=== PATIENT | female | born 1980 | race Caucasian/White ===

== ENCOUNTER 2017-07-05 02:42 | Emergency (ER) | payer SELFPAY ==
[~2017-07-05] VITALS: Ht 157.5 cm; Wt 63.5 kg
[2017-07-05 02:42] VITALS: BP_SYST 146
[2017-07-05] MEDS ORDERED: NS 500 ML IV ONE (03:00)
[2017-07-05] MEDS ORDERED: DIPH-TET-PERTUS Vaccine 0.5 ML VIAL (ADACEL) I.M. ONE (03:00)
[2017-07-05] MEDS ORDERED: AMPICILLIN SODIUM/SULBACTAM NA 1.5 GM in NS 50 ML IV ONE (03:00)
[2017-07-05] MEDS ORDERED: AMPICILLIN SODIUM/SULBACTAM NA 1.5 GM VIAL ONE (03:04)
[2017-07-05 03:56] VITALS: BP_SYST 137
== END 2017-07-05 03:56 | disposition home or self-care (01) ==
LOC: SED 02:42
DX: L03.114 Cellulitis of left upper limb (principal); M06.9 Rheumatoid arthritis, unspecified; F17.200 Nicotine dependence, unspecified, uncomplicated; F15.10 Other stimulant abuse, uncomplicated; F12.10 Cannabis abuse, uncomplicated
CPT/HCPCS: 90471; 90715; 96365; 99284; J0295; J7040

== ENCOUNTER 2018-01-25 22:41 | Emergency (ER) | payer SELFPAY ==
[~2018-01-25] VITALS: Ht 154.9 cm; Wt 56.7 kg
[2018-01-25 22:50] VITALS: BP_SYST 138
[2018-01-25] MEDS ORDERED: CAT.1 PO (23:08)
[2018-01-25] MEDS ORDERED: ALPR1TAB2 PO (23:09)
[2018-01-25] MEDS ORDERED: HYDR-2489 PO (23:10)
[2018-01-25] MEDS ORDERED: SOM350 PO (23:10)
[2018-01-26 00:14] VITALS: BP_SYST 133
== END 2018-01-26 00:14 | disposition home or self-care (01) ==
LOC: SED 22:41
DX: S16.1XXA Strain of muscle, fascia and tendon at neck level, initial encounter (principal); R03.0 Elevated blood-pressure reading, without diagnosis of hypertension; Z79.899 Other long term (current) drug therapy; V43.62XA Car passenger injured in collision with other type car in traffic accident, initial encounter; Y93.89 Activity, other specified; Y92.410 Unspecified street and highway as the place of occurrence of the external cause; Y99.8 Other external cause status
CPT/HCPCS: 72040-TC; 72072-TC; 81025; 99284

== ENCOUNTER → 2023-06-21 10:27 | Emergency (ER) | payer MEDICAID ==
[~2023-06-21] VITALS: Ht 157.5 cm; Wt 70.3 kg
[2023-06-21 10:27] VITALS: BP_SYST 120; PULSE 99; RESP 18; TEMP 97.8; O2SAT 100
[~2023-06-21 10:27] MED LIST: ALPR1TAB2 PO; CAT.1 PO; HYDR-4274 PO; PNV1TABL75 PO; SOM350 PO
[2023-06-21 11:04] LABS: BILIRUBIN,URINE NEGATIVE (NEGATIVE); CLARITY/URINE CLEAR (CLEAR); COLOR,URINE YELLOW (YELLOW); GLUCOSE,URINE NEGATIVE (NEGATIVE); KETONES,URINE TRACE (NEGATIVE); LEUKOCYTE ESTERASE ,URINE NEGATIVE (NEGATIVE); NITRITE, URINE NEGATIVE (NEGATIVE); PROTEIN URINE NEGATIVE (NEGATIVE); UROBILINOGEN,URINE 0.2 (0.2-1.0)
[2023-06-21 11:10] LABS: BLOOD, URINE TRACE (NEGATIVE)
[2023-06-21 11:14] LABS: BACTERIA,URINE FEW /HPF (None Seen); MUCUS,URINE 1+ /LPF (None Seen); RBC,URINE 0-3 /HPF (0-3); WBC,URINE 0-3 /HPF (0-3)
[2023-06-21 11:17] LABS: BASOPHILS # (AUTO) 0.1 K/uL (0.0-0.2); BASOPHILS % (AUTO) 0.6 % (0.0-2.0); EOSINOPHILS # (AUTO) 0.1 K/uL (0.0-0.4); EOSINOPHILS % (AUTO) 1.4 % (0.0-4.0); HEMATOCRIT 43.8 % (36-48); HEMOGLOBIN 15.1 g/dL (12.0-16.0); LYMPHOCYTES # (AUTO) 1.6 K/uL (1.0-5.5); LYMPHOCYTES % (AUTO) 18.9 % (20.5-51.5); MEAN CORPUSCULAR HEMOGLOBIN 32 pg (27-31); MEAN CORPUSCULAR HGB CONC 35 % (32-36); MEAN CORPUSCULAR VOLUME 93 fL (79.0-98.0); MONOCYTES # (AUTO) 0.6 K/uL (0.0-1.0); NEUTROPHILS % (AUTO) 72.1 % (40.0-70.0); PLATELET COUNT (AUTO) 330 K/uL (130-430); RED BLOOD CELL COUNT(AUTO) 4.73 MIL/uL (4.2-6.2); RED CELL DISTRIBUTION WIDTH 12.5 % (9.0-15.0); WHITE BLOOD COUNT (AUTO) 8.4 K/uL (4.8-10.8)
[2023-06-21 13:44] VITALS: BP_SYST 122; PULSE 78; RESP 17; TEMP 97.8; O2SAT 99
== END | disposition home or self-care (01) ==
LOC: SED 10:27
DX: O00.01 Abdominal pregnancy with intrauterine pregnancy (principal); Z79.899 Other long term (current) drug therapy
CPT/HCPCS: 36415; 76856; 81000; 81001; 81015; 81025; 84702; 85025; 86900; 86901; 99284